=== PATIENT | female | born 1955 | race Caucasian/White ===

== ENCOUNTER 2021-05-30 15:20 | Outpatient (CLI) | payer OTHER | END 2021-05-30 15:21 | disposition home or self-care (01) | LOC: CSHMAMMO 15:20 | PROVIDERS: ATTEND Family Medicine | DX: Z12.31 Encounter for screening mammogram for malignant neoplasm of breast (principal); Z13.820 Encounter for screening for osteoporosis; M85.851 Other specified disorders of bone density and structure, right thigh | CPT/HCPCS: 77063; 77067; 77080 ==

== ENCOUNTER 2024-06-18 09:38 | Outpatient (CLI) | payer MEDICARE | END 2024-06-18 09:39 | disposition home or self-care (01) | LOC: CSHMAMMO 09:38 | PROVIDERS: ATTEND Specialist | DX: N63.20 Unspecified lump in the left breast, unspecified quadrant (principal) ==

== ENCOUNTER 2024-07-13 08:09 | Day surgery (SDC) | payer MEDICARE ==
[2024-07-06 12:19] VITALS: BMI 37.2
[2024-07-13] MEDS ORDERED: Acetaminophen 500 MG TAB ONE (09:17)
[2024-07-13] MEDS ORDERED: Ketorolac Tromethamine 30 MG (1 mL) VIAL ONE (09:17)
[2024-07-13] MEDS ORDERED: PROPOFOL 20 ML ONE (10:34)
[2024-07-13] MEDS ORDERED: Lidocaine 2% PF 5 ML VIAL ONE (10:35)
[2024-07-13] MEDS ORDERED: Ondansetron PF 4 MG/2 ML Vial ONE (10:36)
[2024-07-13] MEDS ORDERED: Dexamethasone 20 MG/5 ML VIAL ONE (10:36)
[2024-07-13] MEDS ORDERED: CEFAZOLIN 2 GM VIAL ONE (11:49)
[2024-07-13] MEDS ORDERED: Lidocaine 2% MPF 10 ML AMP (For Epidural Use) ONE (11:49)
[2024-07-13] MEDS ORDERED: Bupivacaine/Epinephrine 0.25% 30 ML VIAL ONE (11:49)
[2024-07-13] MEDS ORDERED: Isosulfan Blue 50 MG/5 ML VIAL ONE (12:24)
[2024-07-13] MEDS ORDERED: Fentanyl 100 MCG/2 ML VIAL ONE (12:27)
[2024-07-13] MEDS ORDERED: ePHEDrine Sulfate 50 MG/10 ML VIAL ONE (12:57)
== END 2024-07-13 15:30 | disposition home or self-care (01) ==
LOC: CSHSDC 08:09
PROVIDERS: ATTEND Specialist
PROC: 0HBU0ZZ Excision of Left Breast, Open Approach (ICD-10-PCS; principal; 2024-07-13)
PROC: 07B60ZZ Excision of Left Axillary Lymphatic, Open Approach (ICD-10-PCS; 2024-07-13)
DX: C50.912 Malignant neoplasm of unspecified site of left female breast (principal); N64.1 Fat necrosis of breast; I10 Essential (primary) hypertension; I48.19 Other persistent atrial fibrillation; E78.2 Mixed hyperlipidemia; E66.9 Obesity, unspecified; M81.0 Age-related osteoporosis without current pathological fracture; D64.9 Anemia, unspecified; Z17.0 Estrogen receptor positive status [ER+]; Z17.21 Progesterone receptor positive status; Z17.32 Human epidermal growth factor receptor 2 negative status; Z68.39 Body mass index [BMI] 39.0-39.9, adult; Z88.0 Allergy status to penicillin; Z88.5 Allergy status to narcotic agent; Z91.048 Other nonmedicinal substance allergy status; Z79.01 Long term (current) use of anticoagulants; Z79.899 Other long term (current) drug therapy
CPT/HCPCS: 19301; 38525; 38900; C1713; J1100; J1885; J2405; J2704; J3010; Q9968; 88307; 88341; 88342